=== PATIENT | female | born 1995 | race Caucasian/White ===

== ENCOUNTER 2019-11-28 14:37 | Inpatient (IN) | payer MEDICAID ==
[~2019-11-28] VITALS: Ht 177.8 cm; Wt 69.0 kg
[2019-11-28 15:26] LABS: BASOPHILS % (AUTO) 0.1 % (0.0-2.0); EOSINOPHILS % (AUTO) 1.7 % (1.0-6.0); HEMATOCRIT 39.4 % (36-46); HEMOGLOBIN 13.1 g/dL (12.0-16.0); LYMPHOCYTES # (AUTO) 1.9 K/uL (1.0-4.8); LYMPHOCYTES % (AUTO) 27.9 % (22.0-44.0); MEAN CORPUSCULAR HEMOGLOBIN 29.4 pg (26.0-34.0); MEAN CORPUSCULAR HGB CONC 33.3 G/dL (31.0-37.0); MEAN CORPUSCULAR VOLUME 88 fL (80-100); MONOCYTES # (AUTO) 0.5 K/uL (0.1-1.0); MONOCYTES % (AUTO) 7.9 % (2.0-9.0); NEUTROPHILS # (AUTO) 4.3 K/uL (1.8-7.7); NEUTROPHILS % (AUTO) 62.4 % (40.0-70.0); PLATELET COUNT (AUTO) 184 K/uL (150-450); RED BLOOD CELL COUNT(AUTO) 4.46 MIL/uL (4.00-5.20); RED CELL DISTRIBUTION WIDTH 13.9 % (11.5-14.5)
[2019-11-28 15:45] LABS: ANION GAP 11 mmol/L (8-16); CALCIUM, TOTAL 8.8 mg/dL (8.8-10.5); CARBON DIOXIDE 26 mmol/L (22-29); CHLORIDE 105 mmol/L (98-107); CREATININE 0.66 mg/dL (0.60-1.30); GLOMERULAR FILTR. RATE CALC > 60 mL/min (>60); GLUCOSE,RANDOM 73 mg/dL (70-110); POTASSIUM 3.5 mmol/L (3.5-5.1); SODIUM SERUM 142 mmol/L (136-145); UREA NITROGEN, BLOOD 15 mg/dL (7-18)
[2019-11-28 15:50] LABS: ALANINE AMINOTRANSFERASE 23 U/L (12-78); ALBUMIN 4.2 g/dL (3.4-5.0); ALKALINE PHOSPHATASE 61 U/L (46-116); ASPARTATE AMINOTRANSFERASE 21 U/L (15-37); TOTAL PROTEIN, SERUM 7.1 g/dL (6.4-8.2)
[2019-11-28] MEDS ORDERED: HALOPERIDOL LACTATE 5 MG/ML VIAL ONE (17:12)
[2019-11-28] MEDS ORDERED: LORazepam 2 MG/ML VIAL ONE (17:12)
[2019-11-28] MEDS ORDERED: LORazepam 2 MG/ML VIAL IM ONE (17:15)
[2019-11-28] MEDS ORDERED: HALOPERIDOL LACTATE 5 MG/ML VIAL IM ONE (17:15)
[2019-11-28] MEDS ORDERED: HALOPERIDOL 5 MG TABLET PO PRN (19:15)
[2019-11-28] MEDS ORDERED: ZOLPIDEM TARTRATE 10 MG TABLET PO PRN (19:15)
[2019-11-28 22:08] VITALS: BP 96/56
[2019-11-29 09:28] VITALS: BP_SYST 18
[2019-11-29] MEDS: RisperiDONE 1 MG TABLET PO SCH ×2 (10:39→16:23)
[2019-11-29] MEDS: LORazepam 2 MG TABLET PO PRN (16:23)
[2019-11-29 16:50] VITALS: BP 115/68
[2019-11-30 05:52] VITALS: BP 116/80
[2019-11-30] MEDS: RisperiDONE 1 MG TABLET PO SCH ×2 (09:00→16:13)
[2019-11-30 13:19] VITALS: BP 131/75
[2019-11-30] MEDS ORDERED: MAGNESIUM HYDROXIDE SUSPENSION 30 ML UDCUP PO PRN (14:15)
[2019-11-30] MEDS ORDERED: MAG HYDROX/AL HYDROX/SIMETH ES 30 ML SUSPENSION UDCUP PO PRN (14:15)
[2019-11-30] MEDS ORDERED: NICOTINE 14 MG/24 HOUR PATCH TD PRN (14:15)
[2019-11-30] MEDS ORDERED: DOCUSATE SODIUM 100 MG CAPSULE PO PRN (14:15)
[2019-11-30] MEDS ORDERED: IBUPROFEN 400 MG TABLET PO PRN (14:15)
[2019-11-30] MEDS ORDERED: GuaiFENesin/D-METHORPHAN [SUGAR-FREE] 200-20MG/10 ML SYRUP UDCUP PO PRN (14:15)
[2019-11-30] MEDS ORDERED: ACETAMINOPHEN 325 MG TABLET PO PRN (14:15)
[2019-11-30] MEDS ORDERED: ONDANSETRON HCL 4 MG TABLET PO PRN (14:15)
[2019-11-30] MEDS ORDERED: ALBUTEROL SULFATE HFA 90 MCG/PUFF 8 GM INHALER IH PRN (14:15)
[2019-11-30] MEDS ORDERED: PETROLATUM,WHITE 28 GM JELLY TP PRN (14:15)
[2019-11-30] MEDS ORDERED: LOPERAMIDE HCL 2 MG CAPSULE PO PRN (14:15)
[2019-11-30] MEDS ORDERED: CloNIDine HCL 0.1 MG TABLET PO PRN (14:15)
[2019-11-30 19:08] VITALS: BP 126/69
[2019-12-01] MEDS: RisperiDONE 1 MG TABLET PO SCH ×2 (09:00→16:51)
[2019-12-01 10:53] VITALS: BP 107/61
[2019-12-01 16:57] VITALS: BP 106/83
[2019-12-01] MEDS: LORazepam 2 MG TABLET PO PRN (19:15)
[2019-12-02] MEDS ORDERED: RINGERS SOLUTION,LACTATED 1,000 ML IV ONE ×2 (05:06→06:30)
[2019-12-02 05:15] VITALS: BP 119/60
[2019-12-02] MEDS ORDERED: SODIUM CHLORIDE 0.9% 0 ML ONE (06:47)
[2019-12-02] MEDS ORDERED: BACITRACIN 50,000 UNITS/VIAL ONE (06:47)
[2019-12-02] MEDS ORDERED: LIDOCAINE/PF 1% 30 ML VIAL ONE (06:48)
[2019-12-02] MEDS ORDERED: BUPIVACAINE HCL/PF 0.5% 30 ML VIAL ONE (06:48)
[2019-12-02] MEDS ORDERED: BACITRACIN 28.4 GM OINTMENT TP ONE (08:14)
[2019-12-02] MEDS ORDERED: ACETAMINOPHEN/CODEINE 300-30 MG TABLET PO PRN (08:30)
[2019-12-02] MEDS: RisperiDONE 1 MG TABLET PO SCH ×2 (09:37→16:20)
[2019-12-02 10:14] VITALS: BP 102/69
[2019-12-02] MEDS ORDERED: MIDAZOLAM HCL 2 MG/2 ML VIAL IVP ONE (12:00)
[2019-12-02] MEDS ORDERED: FentaNYL CITRATE-PF 100 MCG/2 ML VIAL IVP ONE (12:00)
[2019-12-02] MEDS ORDERED: 0.9% SODIUM CHLORIDE 10 ML VIAL IVP ONE (12:00)
[2019-12-02] MEDS ORDERED: PROPOFOL 1% 20 ML VIAL IVP ONE (12:00)
[2019-12-02 17:28] VITALS: BP 148/58
[2019-12-02] MEDS: CEPHALEXIN MONOHYDRATE 500 MG CAPSULE PO SCH (23:48)
[2019-12-03 08:49] VITALS: BP 125/81
[2019-12-03] MEDS: CEPHALEXIN MONOHYDRATE 500 MG CAPSULE PO SCH ×2 (09:03→16:49)
[2019-12-03] MEDS: RisperiDONE 1 MG TABLET PO SCH ×2 (09:03→16:48)
[2019-12-03] MEDS: SULFAMETHOX/TRIMETH DS 800-160 MG/TABLET PO SCH (09:03)
[2019-12-03 11:28] VITALS: BP 122/76
[2019-12-03 17:13] VITALS: BP 110/74
[2019-12-04 03:24] VITALS: BP 107/60
[2019-12-04 08:46] VITALS: BP 121/71
[2019-12-04] MEDS: CEPHALEXIN MONOHYDRATE 500 MG CAPSULE PO SCH ×3 (09:12→16:26)
[2019-12-04] MEDS: RisperiDONE 1 MG TABLET PO SCH ×2 (09:12→16:26)
[2019-12-04] MEDS: SULFAMETHOX/TRIMETH DS 800-160 MG/TABLET PO SCH (09:12)
[2019-12-04 18:51] VITALS: BP 101/60
[2019-12-05] MEDS: CEPHALEXIN MONOHYDRATE 500 MG CAPSULE PO SCH ×4 (00:08→23:48)
[2019-12-05 00:19] VITALS: BP 98/62
[2019-12-05 09:00] VITALS: BP 128/66
[2019-12-05] MEDS: SULFAMETHOX/TRIMETH DS 800-160 MG/TABLET PO SCH (09:34)
[2019-12-05] MEDS: RisperiDONE 1 MG TABLET PO SCH ×2 (09:34→16:05)
[2019-12-05 17:07] VITALS: BP 102/62
[2019-12-06 01:23] VITALS: BP 97/58
[2019-12-06] MEDS: CEPHALEXIN MONOHYDRATE 500 MG CAPSULE PO SCH ×3 (08:29→23:55)
[2019-12-06] MEDS: SULFAMETHOX/TRIMETH DS 800-160 MG/TABLET PO SCH (08:29)
[2019-12-06] MEDS: RisperiDONE 1 MG TABLET PO SCH ×2 (08:29→16:00)
[2019-12-06 09:38] VITALS: BP 113/58
[2019-12-06 17:02] VITALS: BP 102/58
[2019-12-07] MEDS: CEPHALEXIN MONOHYDRATE 500 MG CAPSULE PO SCH ×3 (09:14→23:52)
[2019-12-07] MEDS: RisperiDONE 1 MG TABLET PO SCH ×2 (09:14→16:06)
[2019-12-07] MEDS: SULFAMETHOX/TRIMETH DS 800-160 MG/TABLET PO SCH (09:14)
[2019-12-07 09:19] VITALS: BP 100/70
[2019-12-07 16:55] VITALS: BP 106/57
[2019-12-08] MEDS: RisperiDONE 1 MG TABLET PO SCH ×2 (08:16→16:08)
[2019-12-08] MEDS: CEPHALEXIN MONOHYDRATE 500 MG CAPSULE PO SCH ×2 (08:16→16:08)
[2019-12-08] MEDS: SULFAMETHOX/TRIMETH DS 800-160 MG/TABLET PO SCH (08:16)
[2019-12-08 09:08] VITALS: BP 111/68
[2019-12-08 17:52] VITALS: BP 114/58
[2019-12-09 09:06] VITALS: BP 111/57
[2019-12-09] MEDS: RisperiDONE 1 MG TABLET PO SCH ×2 (09:10→16:15)
[2019-12-09] MEDS ORDERED: TUBERCULIN, PURIFIED PROTEIN DERIVATIVE 5 TU/0.1 ML SYRINGE ID ONE (15:15)
[2019-12-09 17:01] VITALS: BP 101/56
[2019-12-10 08:22] VITALS: BP 105/58
[2019-12-10] MEDS: RisperiDONE 1 MG TABLET PO SCH ×2 (09:25→15:51)
[2019-12-10] MEDS ORDERED: TUBERCULIN, PURIFIED PROTEIN DERIVATIVE 5 TU/0.1 ML SYRINGE ID ONE (13:00)
[2019-12-10 16:18] VITALS: BP 98/56
[2019-12-11] MEDS: RisperiDONE 1 MG TABLET PO SCH ×2 (08:35→16:24)
[2019-12-11 12:25] VITALS: BP 119/66
[2019-12-11 16:28] VITALS: BP 98/60
[2019-12-12 02:38] VITALS: BP 109/61
[2019-12-12] MEDS: RisperiDONE 1 MG TABLET PO SCH ×2 (08:59→16:06)
[2019-12-12 10:39] VITALS: BP 108/56
[2019-12-12 17:26] VITALS: BP 100/53
[2019-12-13] MEDS: RisperiDONE 1 MG TABLET PO SCH ×2 (09:25→16:01)
[2019-12-13 09:36] VITALS: BP 101/57
[2019-12-13 16:00] VITALS: BP 92/50
[2019-12-14 03:52] VITALS: BP 102/62
[2019-12-14 09:23] VITALS: BP 100/60
[2019-12-14] MEDS: RisperiDONE 1 MG TABLET PO SCH ×2 (09:25→16:11)
[2019-12-14] MEDS: LORazepam 2 MG TABLET PO PRN (16:09)
[2019-12-14 18:57] VITALS: BP 108/64
[2019-12-15 01:46] VITALS: BP 104/64
[2019-12-15] MEDS: RisperiDONE 1 MG TABLET PO SCH (08:43)
[2019-12-15] MEDS ORDERED: RISP1 PO (09:10)
[2019-12-15 09:36] VITALS: BP 110/55
== END 2019-12-15 10:25 | disposition home or self-care (01) | DRG 885 ==
LOC: EMS 14:40 → 3EI 19:30
PROVIDERS: ADMIT Psychiatry & Neurology Child & Adolescent Psychiatry; ATTEND Psychiatry & Neurology Child & Adolescent Psychiatry
PROC: 0JCQ0ZZ Extirpation of Matter from Right Foot Subcutaneous Tissue and Fascia, Open Approach (ICD-10-PCS; principal; 2019-12-02 07:30)
DX: F20.0 Paranoid schizophrenia (principal); F10.10 Alcohol abuse, uncomplicated; F17.200 Nicotine dependence, unspecified, uncomplicated; I10 Essential (primary) hypertension; F15.90 Other stimulant use, unspecified, uncomplicated; S90.851A Superficial foreign body, right foot, initial encounter; X58.XXXA Exposure to other specified factors, initial encounter; Y93.89 Activity, other specified; Y92.89 Other specified places as the place of occurrence of the external cause; Y99.8 Other external cause status; Z59.0 Homelessness; F41.9 Anxiety disorder, unspecified; I95.9 Hypotension, unspecified; F19.10 Other psychoactive substance abuse, uncomplicated
CPT/HCPCS: 88302; 97116; 97161; 97530; G0480; J0690; J1630; J2060; J2250; J2704; J3010; J3490; J7120

== ENCOUNTER 2019-12-19 11:34 | Emergency (ER) | payer MEDICAID ==
[~2019-12-19] VITALS: Ht 177.8 cm; Wt 59.1 kg
[~2019-12-19 11:34] MED LIST: RISP1 PO
[2019-12-19] MEDS ORDERED: HALOPERIDOL 5 MG TABLET PO ONE (13:15)
[2019-12-19 13:16] LABS: BASOPHILS % (AUTO) 0.3 % (0.0-2.0); EOSINOPHILS % (AUTO) 2.6 % (1.0-6.0); HEMOGLOBIN 13.6 g/dL (12.0-16.0); LYMPHOCYTES # (AUTO) 1.9 K/uL (1.0-4.8); LYMPHOCYTES % (AUTO) 32.6 % (22.0-44.0); MEAN CORPUSCULAR HEMOGLOBIN 29.4 pg (26.0-34.0); MEAN CORPUSCULAR HGB CONC 33.1 G/dL (31.0-37.0); MEAN CORPUSCULAR VOLUME 89 fL (80-100); MONOCYTES # (AUTO) 0.5 K/uL (0.1-1.0); MONOCYTES % (AUTO) 8.1 % (2.0-9.0); NEUTROPHILS # (AUTO) 3.3 K/uL (1.8-7.7); NEUTROPHILS % (AUTO) 56.4 % (40.0-70.0); PLATELET COUNT (AUTO) 178 K/uL (150-450); RED BLOOD CELL COUNT(AUTO) 4.62 MIL/uL (4.00-5.20); RED CELL DISTRIBUTION WIDTH 13.7 % (11.5-14.5)
[2019-12-19 13:25] LABS: ANION GAP 9 mmol/L (8-16); CALCIUM, TOTAL 9.5 mg/dL (8.8-10.5); CARBON DIOXIDE 27 mmol/L (22-29); CHLORIDE 105 mmol/L (98-107); CREATININE 0.69 mg/dL (0.60-1.30); GLOMERULAR FILTR. RATE CALC > 60 mL/min (>60); GLUCOSE,RANDOM 77 mg/dL (70-110); POTASSIUM 3.8 mmol/L (3.5-5.1); SODIUM SERUM 141 mmol/L (136-145); UREA NITROGEN, BLOOD 15 mg/dL (7-18)
[2019-12-19 13:37] LABS: ALANINE AMINOTRANSFERASE 25 U/L (12-78); ALKALINE PHOSPHATASE 60 U/L (46-116); ASPARTATE AMINOTRANSFERASE 19 U/L (15-37); BILIRUBIN,TOTAL 0.6 mg/dL (0.1-1.0); HCG,QUANTITATIVE < 1 mIU/mL (0-6); TOTAL PROTEIN, SERUM 7.3 g/dL (6.4-8.2)
[2019-12-19 15:00] VITALS: BP 120/61
== END 2019-12-19 15:19 | disposition home or self-care (01) ==
LOC: EMS 11:34
DX: F20.9 Schizophrenia, unspecified (principal); F15.10 Other stimulant abuse, uncomplicated; F41.9 Anxiety disorder, unspecified; I10 Essential (primary) hypertension; F17.210 Nicotine dependence, cigarettes, uncomplicated; Z91.018 Allergy to other foods
CPT/HCPCS: 36415; 80053; 84702; 85025; 99284; 99406; G0480

== ENCOUNTER 2019-12-21 08:06 | Emergency (ER) | payer MEDICAID ==
[~2019-12-21] VITALS: Ht 175.3 cm; Wt 81.4 kg
[2019-12-21 08:26] LABS: AMPHET/METH SCREEN,URINE NEGATIVE (NEGATIVE); BARBITURATE SCREEN, URINE NEGATIVE (NEGATIVE); BENZODIAZEPINES SCREEN,URINE NEGATIVE (NEGATIVE); CANNABINOID SCREEN,URINE NEGATIVE (NEGATIVE); COCAINE SCREEN,URINE NEGATIVE (NEGATIVE); METHADONE SCREEN, URINE NEGATIVE (NEGATIVE); OPIATE SCREEN,URINE NEGATIVE (NEGATIVE)
[2019-12-21 08:27] LABS: PHENCYCLIDINE SCREEN,URINE NEGATIVE (NEGATIVE)
[2019-12-21 08:28] LABS: APPEARANCE,URINE CLEAR (CLEAR); BILIRUBIN,URINE NEGATIVE (NEGATIVE); GLUCOSE, URINE (UA) NEGATIVE (NEGATIVE); KETONES,URINE NEGATIVE (NEGATIVE); LEUKOCYTE ESTERASE ,URINE SMALL (NEGATIVE); NITRATE,URINE NEGATIVE (NEGATIVE); OCCULT BLOOD,URINE MODERATE (NEGATIVE); PH,URINE 5.5 (5.0-8.0); PROTEIN,URINE NEGATIVE (NEGATIVE); UROBILINOGEN,URINE 0.2 mg/dL (<=1.0)
[2019-12-21 08:31] LABS: BACTERIA,URINE None Seen /HPF (None Seen); WBC,URINE None Seen /HPF (0-5)
[2019-12-21] MEDS ORDERED: DiphenhydrAMINE HCL 50 MG/ML VIAL ONE (08:40)
[2019-12-21] MEDS ORDERED: HALOPERIDOL LACTATE 5 MG/ML VIAL ONE (08:40)
[2019-12-21] MEDS ORDERED: LORazepam 2 MG/ML VIAL ONE (08:40)
[2019-12-21] MEDS ORDERED: LORazepam 2 MG/ML VIAL IM ONE (08:45)
[2019-12-21] MEDS ORDERED: HALOPERIDOL LACTATE 5 MG/ML VIAL IM ONE (08:45)
[2019-12-21] MEDS ORDERED: DiphenhydrAMINE HCL 50 MG/ML VIAL IM ONE (08:45)
[2019-12-21 09:38] LABS: BASOPHILS % (AUTO) 0.2 % (0.0-2.0); EOSINOPHILS % (AUTO) 3.5 % (1.0-6.0); HEMATOCRIT 38.5 % (36-46); HEMOGLOBIN 12.9 g/dL (12.0-16.0); LYMPHOCYTES # (AUTO) 2.1 K/uL (1.0-4.8); LYMPHOCYTES % (AUTO) 35.6 % (22.0-44.0); MEAN CORPUSCULAR HEMOGLOBIN 29.9 pg (26.0-34.0); MEAN CORPUSCULAR HGB CONC 33.6 G/dL (31.0-37.0); MEAN CORPUSCULAR VOLUME 89 fL (80-100); MONOCYTES # (AUTO) 0.4 K/uL (0.1-1.0); NEUTROPHILS # (AUTO) 3.2 K/uL (1.8-7.7); NEUTROPHILS % (AUTO) 53.7 % (40.0-70.0); PLATELET COUNT (AUTO) 177 K/uL (150-450); RED BLOOD CELL COUNT(AUTO) 4.33 MIL/uL (4.00-5.20); RED CELL DISTRIBUTION WIDTH 13.8 % (11.5-14.5)
[2019-12-21 09:46] LABS: ANION GAP 7 mmol/L (8-16); CARBON DIOXIDE 26 mmol/L (22-29); CHLORIDE 103 mmol/L (98-107); CREATININE 0.65 mg/dL (0.60-1.30); GLOMERULAR FILTR. RATE CALC > 60 mL/min (>60); GLUCOSE,RANDOM 81 mg/dL (70-110); POTASSIUM 3.8 mmol/L (3.5-5.1); SODIUM SERUM 136 mmol/L (136-145); UREA NITROGEN, BLOOD 16 mg/dL (7-18)
[2019-12-21 09:53] LABS: ALANINE AMINOTRANSFERASE 24 U/L (12-78); ALBUMIN 4.1 g/dL (3.4-5.0); ALKALINE PHOSPHATASE 66 U/L (46-116); ASPARTATE AMINOTRANSFERASE 20 U/L (15-37); BILIRUBIN,TOTAL 0.3 mg/dL (0.1-1.0); TOTAL PROTEIN, SERUM 7.5 g/dL (6.4-8.2)
[2019-12-21 18:51] VITALS: BP 124/78
== END 2019-12-21 18:53 | disposition home or self-care (01) ==
LOC: EMS 08:08
DX: F20.9 Schizophrenia, unspecified (principal); F41.9 Anxiety disorder, unspecified; I10 Essential (primary) hypertension; F17.210 Nicotine dependence, cigarettes, uncomplicated; F15.90 Other stimulant use, unspecified, uncomplicated; F11.90 Opioid use, unspecified, uncomplicated; F12.90 Cannabis use, unspecified, uncomplicated; Z79.899 Other long term (current) drug therapy; Z91.018 Allergy to other foods
CPT/HCPCS: 36415; 80053; 80307; 81001; 85025; 96372; 99284; G0480; J1200; J1630; J2060

== ENCOUNTER 2019-12-23 10:03 | Emergency (ER) | payer MEDICAID ==
[~2019-12-23] VITALS: Ht 177.8 cm; Wt 68.2 kg
[2019-12-23] MEDS ORDERED: HALOPERIDOL LACTATE 5 MG/ML VIAL IM ONE (10:30)
[2019-12-23 10:52] VITALS: BP 146/81
== END 2019-12-23 10:53 | disposition home or self-care (01) ==
LOC: EMS 10:05
DX: R44.0 Auditory hallucinations (principal); F41.9 Anxiety disorder, unspecified; I10 Essential (primary) hypertension; Z91.018 Allergy to other foods
CPT/HCPCS: 96372; 99284; J1630

== ENCOUNTER 2019-12-31 19:32 | Inpatient (IN) | payer MEDICAID ==
[~2019-12-31] VITALS: Ht 177.8 cm; Wt 79.3 kg
[2019-12-31 20:19] LABS: BASOPHILS % (AUTO) 0.2 % (0.0-2.0); EOSINOPHILS % (AUTO) 5.1 % (1.0-6.0); HEMATOCRIT 37.1 % (36-46); HEMOGLOBIN 12.7 g/dL (12.0-16.0); LYMPHOCYTES % (AUTO) 38.2 % (22.0-44.0); MEAN CORPUSCULAR HEMOGLOBIN 30.4 pg (26.0-34.0); MEAN CORPUSCULAR HGB CONC 34.1 G/dL (31.0-37.0); MEAN CORPUSCULAR VOLUME 89 fL (80-100); MONOCYTES # (AUTO) 0.4 K/uL (0.1-1.0); MONOCYTES % (AUTO) 7.7 % (2.0-9.0); NEUTROPHILS # (AUTO) 2.5 K/uL (1.8-7.7); NEUTROPHILS % (AUTO) 48.8 % (40.0-70.0); PLATELET COUNT (AUTO) 190 K/uL (150-450); RED BLOOD CELL COUNT(AUTO) 4.18 MIL/uL (4.00-5.20); RED CELL DISTRIBUTION WIDTH 14.4 % (11.5-14.5)
[2019-12-31 20:30] LABS: ANION GAP 3 mmol/L (8-16); CALCIUM, TOTAL 8.9 mg/dL (8.8-10.5); CARBON DIOXIDE 29 mmol/L (22-29); CHLORIDE 109 mmol/L (98-107); CREATININE 0.57 mg/dL (0.60-1.30); GLOMERULAR FILTR. RATE CALC > 60 mL/min (>60); GLUCOSE,RANDOM 85 mg/dL (70-110); POTASSIUM 3.9 mmol/L (3.5-5.1); SODIUM SERUM 141 mmol/L (136-145); UREA NITROGEN, BLOOD 13 mg/dL (7-18)
[2019-12-31 20:43] LABS: ALANINE AMINOTRANSFERASE 27 U/L (12-78); ALBUMIN 3.7 g/dL (3.4-5.0); ALKALINE PHOSPHATASE 54 U/L (46-116); ASPARTATE AMINOTRANSFERASE 21 U/L (15-37); BILIRUBIN,TOTAL 0.2 mg/dL (0.1-1.0); HCG,QUANTITATIVE < 1 mIU/mL (0-6)
[2019-12-31 20:57] LABS: AMPHET/METH SCREEN,URINE NEGATIVE (NEGATIVE); BARBITURATE SCREEN, URINE NEGATIVE (NEGATIVE); BENZODIAZEPINES SCREEN,URINE POSITIVE (NEGATIVE); CANNABINOID SCREEN,URINE NEGATIVE (NEGATIVE); COCAINE SCREEN,URINE NEGATIVE (NEGATIVE); METHADONE SCREEN, URINE NEGATIVE (NEGATIVE); OPIATE SCREEN,URINE NEGATIVE (NEGATIVE); PHENCYCLIDINE SCREEN,URINE NEGATIVE (NEGATIVE)
[2020-01-01] MEDS: ZOLPIDEM TARTRATE 10 MG TABLET PO PRN (01:33)
[2020-01-01 01:39] LABS: APPEARANCE,URINE TURBID (CLEAR); BILIRUBIN,URINE NEGATIVE (NEGATIVE); GLUCOSE, URINE (UA) NEGATIVE (NEGATIVE); KETONES,URINE NEGATIVE (NEGATIVE); LEUKOCYTE ESTERASE ,URINE SMALL (NEGATIVE); NITRATE,URINE NEGATIVE (NEGATIVE); OCCULT BLOOD,URINE NEGATIVE (NEGATIVE); PH,URINE 7.5 (5.0-8.0); PROTEIN,URINE NEGATIVE (NEGATIVE); UROBILINOGEN,URINE 0.2 mg/dL (<=1.0)
[2020-01-01 01:41] VITALS: BP 112/93
[2020-01-01 01:53] LABS: AMORPHOUS SEDIMENT,UR Few /LPF (None Seen); BACTERIA,URINE Few /HPF (None Seen); RBC,URINE 0-2 /HPF (0-2); SQUAMOUS EPITHELIAL CELL,UR Few /LPF (None Seen)
[2020-01-01 01:54] VITALS: BP 112/93
[2020-01-01 08:04] LABS: CHOL/HDL RATIO 2.5 (3.9-5.7)
[2020-01-01 08:26] VITALS: BP 138/92
[2020-01-01] MEDS: HALOPERIDOL 5 MG TABLET PO PRN (10:55)
[2020-01-01] MEDS: LORazepam 2 MG TABLET PO PRN (10:55)
[2020-01-01] MEDS ORDERED: RISP2 PO (12:42)
[2020-01-01] MEDS: RisperiDONE 2 MG TABLET PO SCH (16:14)
[2020-01-01 16:27] VITALS: BP 107/72
[2020-01-02] MEDS: RisperiDONE 2 MG TABLET PO SCH ×2 (08:23→16:18)
[2020-01-02 08:30] VITALS: BP 124/76
[2020-01-02 17:15] VITALS: BP 139/84
[2020-01-02] MEDS: HALOPERIDOL 5 MG TABLET PO PRN (17:50)
[2020-01-02] MEDS: LORazepam 2 MG TABLET PO PRN (17:50)
[2020-01-03 06:38] VITALS: BP 103/64
[2020-01-03] MEDS: RisperiDONE 2 MG TABLET PO SCH ×2 (08:52→17:09)
[2020-01-03 08:56] VITALS: BP 140/75
[2020-01-03] MEDS: LORazepam 2 MG TABLET PO PRN (15:04)
[2020-01-03] MEDS: HALOPERIDOL 5 MG TABLET PO PRN (15:04)
[2020-01-03 21:29] VITALS: BP 137/81
[2020-01-04 04:11] VITALS: BP 116/76
[2020-01-04] MEDS: RisperiDONE 2 MG TABLET PO SCH ×2 (08:14→16:52)
[2020-01-04] MEDS: LORazepam 2 MG TABLET PO PRN ×2 (08:59→17:48)
[2020-01-04 09:40] VITALS: BP 121/69
[2020-01-04] MEDS: ACETAMINOPHEN 325 MG TABLET PO PRN (13:27)
[2020-01-04 17:09] VITALS: BP 114/74
[2020-01-05] MEDS: RisperiDONE 2 MG TABLET PO SCH ×2 (08:16→16:22)
[2020-01-05 13:39] VITALS: BP 112/86
[2020-01-05] MEDS: LORazepam 2 MG TABLET PO PRN (16:59)
[2020-01-05 17:53] VITALS: BP 107/68
[2020-01-05] MEDS: BENZOCAINE 10% 7 GM GEL TP PRN (18:59)
[2020-01-06] MEDS: RisperiDONE 2 MG TABLET PO SCH ×2 (09:42→17:11)
[2020-01-06 12:13] VITALS: BP 119/67
[2020-01-06] MEDS: HALOPERIDOL 5 MG TABLET PO PRN (17:14)
[2020-01-06] MEDS: LORazepam 2 MG TABLET PO PRN (17:14)
[2020-01-06 19:14] VITALS: BP 114/68
[2020-01-07 01:40] VITALS: BP 111/60
[2020-01-07] MEDS: RisperiDONE 2 MG TABLET PO SCH ×2 (08:24→16:43)
[2020-01-07 08:30] VITALS: BP 118/66
[2020-01-07 17:00] VITALS: BP 130/74
[2020-01-08 08:37] VITALS: BP 117/80
[2020-01-08] MEDS: RisperiDONE 2 MG TABLET PO SCH ×2 (08:50→16:00)
[2020-01-08 17:00] VITALS: BP 129/68
[2020-01-08] MEDS: HALOPERIDOL 5 MG TABLET PO PRN (22:46)
[2020-01-08] MEDS: LORazepam 2 MG TABLET PO PRN (22:46)
[2020-01-08] MEDS: ACETAMINOPHEN 325 MG TABLET PO PRN (23:39)
[2020-01-09] MEDS: RisperiDONE 2 MG TABLET PO SCH ×2 (10:09→17:06)
[2020-01-09 12:36] VITALS: BP 150/103
[2020-01-09] MEDS: LORazepam 2 MG TABLET PO PRN (12:45)
[2020-01-09] MEDS: HALOPERIDOL 5 MG TABLET PO PRN (12:45)
[2020-01-09 17:45] VITALS: BP 112/69
[2020-01-10] MEDS: RisperiDONE 2 MG TABLET PO SCH ×2 (08:22→16:39)
[2020-01-10 09:54] VITALS: BP 114/69
[2020-01-10 17:47] VITALS: BP 120/65
[2020-01-10] MEDS: ZOLPIDEM TARTRATE 10 MG TABLET PO PRN (20:22)
[2020-01-11] MEDS: RisperiDONE 2 MG TABLET PO SCH ×2 (08:44→16:32)
[2020-01-11 09:38] VITALS: BP 108/62
[2020-01-11 11:15] VITALS: BP 104/64
[2020-01-11] MEDS: HALOPERIDOL 5 MG TABLET PO PRN (11:15)
[2020-01-11] MEDS: LORazepam 2 MG TABLET PO PRN (11:15)
[2020-01-11 16:30] VITALS: BP 110/70
[2020-01-12] MEDS: RisperiDONE 2 MG TABLET PO SCH ×2 (08:17→15:53)
[2020-01-12 08:36] VITALS: BP 115/72
[2020-01-12] MEDS: HALOPERIDOL 5 MG TABLET PO PRN (15:52)
[2020-01-12 16:00] VITALS: BP_SYST 108; BP_SYST 135; BP_DIAS 70; BP_DIAS 72
[2020-01-12] MEDS: LORazepam 2 MG TABLET PO PRN (17:03)
[2020-01-13] MEDS: RisperiDONE 2 MG TABLET PO SCH ×2 (08:08→16:57)
[2020-01-13 09:18] VITALS: BP 129/69
[2020-01-13] MEDS: HALOPERIDOL 5 MG TABLET PO PRN (13:32)
[2020-01-13] MEDS: LORazepam 2 MG TABLET PO PRN (13:32)
[2020-01-13 16:55] VITALS: BP 120/76
[2020-01-14] MEDS: RisperiDONE 2 MG TABLET PO SCH ×2 (09:23→16:22)
[2020-01-14 10:41] VITALS: BP 139/75
[2020-01-14 12:45] VITALS: BP 130/75
[2020-01-14] MEDS: ACETAMINOPHEN 325 MG TABLET PO PRN (12:49)
[2020-01-14] MEDS: LORazepam 2 MG TABLET PO PRN (14:26)
[2020-01-14 20:33] VITALS: BP 122/72
[2020-01-15 04:14] VITALS: BP 106/65
[2020-01-15 08:22] VITALS: BP 105/77
[2020-01-15] MEDS: RisperiDONE 2 MG TABLET PO SCH ×2 (09:19→16:28)
[2020-01-15 21:17] VITALS: BP 104/62
[2020-01-16 01:01] VITALS: BP 111/78
[2020-01-16 08:00] VITALS: BP 106/60
[2020-01-16 08:40] VITALS: BP 106/60
[2020-01-16] MEDS: RisperiDONE 2 MG TABLET PO SCH ×2 (08:58→16:36)
[2020-01-16 18:15] VITALS: BP 121/66
[2020-01-17] MEDS: RisperiDONE 2 MG TABLET PO SCH ×2 (08:31→16:47)
[2020-01-17 10:47] VITALS: BP 107/69
[2020-01-17] MEDS: LORazepam 2 MG TABLET PO PRN (16:48)
[2020-01-17] MEDS: HALOPERIDOL 5 MG TABLET PO PRN (16:48)
[2020-01-17 19:41] VITALS: BP 115/74
[2020-01-18 01:00] VITALS: BP 132/60
[2020-01-18] MEDS: ACETAMINOPHEN 325 MG TABLET PO PRN (01:04)
[2020-01-18] MEDS: RisperiDONE 2 MG TABLET PO SCH ×2 (08:32→16:56)
[2020-01-18 10:27] VITALS: BP 98/68
[2020-01-18] MEDS ORDERED: TUBERCULIN, PURIFIED PROTEIN DERIVATIVE 5 TU/0.1 ML SYRINGE ID ONE (12:45)
[2020-01-18] MEDS: HALOPERIDOL 5 MG TABLET PO PRN (15:43)
[2020-01-18] MEDS: LORazepam 2 MG TABLET PO PRN (15:43)
[2020-01-18 16:30] VITALS: BP 110/74
[2020-01-19 05:43] VITALS: BP 141/64
[2020-01-19] MEDS: RisperiDONE 2 MG TABLET PO SCH ×2 (09:03→16:00)
[2020-01-19 10:36] VITALS: BP 137/66
[2020-01-19 17:00] VITALS: BP 118/73
[2020-01-19] MEDS: LORazepam 2 MG TABLET PO PRN (17:59)
[2020-01-19] MEDS: HALOPERIDOL 5 MG TABLET PO PRN (17:59)
[2020-01-20] MEDS: RisperiDONE 2 MG TABLET PO SCH ×2 (08:22→16:38)
[2020-01-20 08:55] VITALS: BP 111/68
[2020-01-20] MEDS ORDERED: TUBERCULIN, PURIFIED PROTEIN DERIVATIVE 5 TU/0.1 ML SYRINGE ID ONE (15:45)
[2020-01-20 16:30] VITALS: BP 120/72
[2020-01-20] MEDS: HALOPERIDOL 5 MG TABLET PO PRN (16:38)
[2020-01-20] MEDS: LORazepam 2 MG TABLET PO PRN (16:38)
[2020-01-21 03:56] VITALS: BP 105/65
[2020-01-21] MEDS: RisperiDONE 2 MG TABLET PO SCH ×2 (08:05→16:15)
[2020-01-21 09:30] VITALS: BP 114/60
[2020-01-21] MEDS: LORazepam 2 MG TABLET PO PRN (14:59)
[2020-01-21 17:04] VITALS: BP 105/69
[2020-01-21] MEDS: DIVALPROEX SODIUM 500 MG ER TABLET PO SCH (20:31)
[2020-01-22 01:20] VITALS: BP 99/64
[2020-01-22] MEDS: RisperiDONE 3 MG TABLET PO SCH ×2 (09:15→16:28)
[2020-01-22 09:34] VITALS: BP 112/65
[2020-01-22] MEDS: BENZTROPINE MESYLATE 1 MG TABLET PO SCH (16:29)
[2020-01-22 16:56] VITALS: BP 122/64
[2020-01-22] MEDS: DIVALPROEX SODIUM 500 MG ER TABLET PO SCH (20:18)
[2020-01-22] MEDS: ZOLPIDEM TARTRATE 10 MG TABLET PO PRN (21:53)
[2020-01-23 03:40] VITALS: BP 107/50
[2020-01-23] MEDS: RisperiDONE 3 MG TABLET PO SCH ×2 (08:19→16:05)
[2020-01-23] MEDS: BENZTROPINE MESYLATE 1 MG TABLET PO SCH ×2 (08:19→16:05)
[2020-01-23 09:43] VITALS: BP 144/66
[2020-01-23 16:53] VITALS: BP 95/59
[2020-01-23] MEDS: DIVALPROEX SODIUM 500 MG ER TABLET PO SCH (20:11)
[2020-01-24 04:34] VITALS: BP 97/63
[2020-01-24] MEDS: BENZTROPINE MESYLATE 1 MG TABLET PO SCH ×2 (09:07→16:16)
[2020-01-24] MEDS: RisperiDONE 3 MG TABLET PO SCH ×2 (09:08→16:16)
[2020-01-24 10:37] VITALS: BP 108/60
[2020-01-24 16:30] VITALS: BP 100/69
[2020-01-24] MEDS: DIVALPROEX SODIUM 500 MG ER TABLET PO SCH (20:20)
[2020-01-25] MEDS: BENZTROPINE MESYLATE 1 MG TABLET PO SCH ×2 (08:04→16:10)
[2020-01-25] MEDS: RisperiDONE 3 MG TABLET PO SCH ×2 (08:04→16:10)
[2020-01-25 16:49] VITALS: BP 146/58
[2020-01-25] MEDS: DIVALPROEX SODIUM 500 MG ER TABLET PO SCH (20:41)
[2020-01-26 02:10] VITALS: BP 116/68
[2020-01-26 08:45] VITALS: BP 111/74
[2020-01-26] MEDS: BENZTROPINE MESYLATE 1 MG TABLET PO SCH ×2 (09:12→16:10)
[2020-01-26] MEDS: RisperiDONE 3 MG TABLET PO SCH ×2 (09:12→16:10)
[2020-01-26 17:00] VITALS: BP 98/69
[2020-01-26] MEDS: DIVALPROEX SODIUM 500 MG ER TABLET PO SCH (20:20)
[2020-01-27 04:30] VITALS: BP 120/68
[2020-01-27] MEDS: BENZTROPINE MESYLATE 1 MG TABLET PO SCH ×2 (08:34→16:12)
[2020-01-27] MEDS: RisperiDONE 3 MG TABLET PO SCH ×2 (08:34→16:12)
[2020-01-27 09:33] VITALS: BP 107/64
[2020-01-27 16:30] VITALS: BP 110/72
[2020-01-27] MEDS: HALOPERIDOL 5 MG TABLET PO PRN (17:23)
[2020-01-27] MEDS: LORazepam 2 MG TABLET PO PRN (17:23)
[2020-01-27] MEDS: DIVALPROEX SODIUM 500 MG ER TABLET PO SCH (20:21)
[2020-01-28 02:36] VITALS: BP 102/84
[2020-01-28] MEDS: RisperiDONE 3 MG TABLET PO SCH ×2 (08:34→16:23)
[2020-01-28] MEDS: BENZTROPINE MESYLATE 1 MG TABLET PO SCH ×2 (08:34→16:23)
[2020-01-28 12:03] VITALS: BP 107/54
[2020-01-28] MEDS: ACETAMINOPHEN 325 MG TABLET PO PRN (16:23)
[2020-01-28 17:00] VITALS: BP 122/65
[2020-01-28] MEDS: DIVALPROEX SODIUM 500 MG ER TABLET PO SCH (20:10)
[2020-01-29 09:29] VITALS: BP 126/66
[2020-01-29] MEDS: RisperiDONE 3 MG TABLET PO SCH ×2 (09:52→16:04)
[2020-01-29] MEDS: BENZTROPINE MESYLATE 1 MG TABLET PO SCH ×2 (09:52→16:04)
[2020-01-29] MEDS: BENZOCAINE 10% 7 GM GEL TP PRN (16:15)
[2020-01-29 17:00] VITALS: BP 98/50
[2020-01-29] MEDS: DIVALPROEX SODIUM 500 MG ER TABLET PO SCH (20:01)
[2020-01-30 00:54] VITALS: BP 105/71
[2020-01-30] MEDS: RisperiDONE 3 MG TABLET PO SCH ×2 (07:57→16:19)
[2020-01-30] MEDS: BENZTROPINE MESYLATE 1 MG TABLET PO SCH ×2 (07:57→16:19)
[2020-01-30 09:47] VITALS: BP 127/71
[2020-01-30 17:15] VITALS: BP 102/69
[2020-01-30] MEDS: DIVALPROEX SODIUM 500 MG ER TABLET PO SCH (20:29)
[2020-01-31 01:49] VITALS: BP 128/71
[2020-01-31] MEDS: RisperiDONE 3 MG TABLET PO SCH ×2 (08:04→16:24)
[2020-01-31] MEDS: BENZTROPINE MESYLATE 1 MG TABLET PO SCH ×2 (08:04→16:24)
[2020-01-31 10:48] VITALS: BP 108/61
[2020-01-31] MEDS: LORazepam 2 MG TABLET PO PRN (16:24)
[2020-01-31] MEDS: HALOPERIDOL 5 MG TABLET PO PRN (16:24)
[2020-01-31 16:44] VITALS: BP 116/70
[2020-01-31] MEDS: DIVALPROEX SODIUM 500 MG ER TABLET PO SCH (20:14)
[2020-02-01] MEDS: RisperiDONE 3 MG TABLET PO SCH ×2 (08:27→16:04)
[2020-02-01] MEDS: BENZTROPINE MESYLATE 1 MG TABLET PO SCH ×2 (08:27→16:04)
[2020-02-01 09:44] VITALS: BP 116/65
[2020-02-01] MEDS: ACETAMINOPHEN 325 MG TABLET PO PRN (16:47)
[2020-02-01 16:48] VITALS: BP 140/77
[2020-02-01] MEDS: DIVALPROEX SODIUM 500 MG ER TABLET PO SCH (20:06)
[2020-02-02] MEDS: BENZTROPINE MESYLATE 1 MG TABLET PO SCH ×2 (08:07→16:22)
[2020-02-02] MEDS: RisperiDONE 3 MG TABLET PO SCH ×2 (08:07→16:22)
[2020-02-02 09:18] VITALS: BP 126/78
[2020-02-02 16:45] VITALS: BP 129/84
[2020-02-02] MEDS: DIVALPROEX SODIUM 500 MG ER TABLET PO SCH (20:17)
[2020-02-03 08:00] VITALS: BP 112/74
[2020-02-03] MEDS: BENZTROPINE MESYLATE 1 MG TABLET PO SCH ×2 (08:46→16:38)
[2020-02-03] MEDS: RisperiDONE 3 MG TABLET PO SCH ×2 (08:46→16:38)
[2020-02-03 16:26] VITALS: BP 101/75
[2020-02-03] MEDS: DIVALPROEX SODIUM 500 MG ER TABLET PO SCH (20:46)
[2020-02-04] MEDS: BENZTROPINE MESYLATE 1 MG TABLET PO SCH ×2 (08:47→17:00)
[2020-02-04] MEDS: RisperiDONE 3 MG TABLET PO SCH ×2 (08:47→17:00)
[2020-02-04 10:48] VITALS: BP 114/74
[2020-02-04] MEDS: DIVALPROEX SODIUM 500 MG ER TABLET PO SCH (20:50)
[2020-02-04 21:06] VITALS: BP 108/67
[2020-02-05] MEDS: RisperiDONE 3 MG TABLET PO SCH ×2 (08:51→16:04)
[2020-02-05] MEDS: BENZTROPINE MESYLATE 1 MG TABLET PO SCH ×2 (08:51→16:04)
[2020-02-05 11:41] VITALS: BP 88/34
[2020-02-05] MEDS: HALOPERIDOL 5 MG TABLET PO PRN (13:50)
[2020-02-05] MEDS: LORazepam 2 MG TABLET PO PRN (16:04)
[2020-02-05 16:40] VITALS: BP 123/69
[2020-02-05] MEDS: DIVALPROEX SODIUM 500 MG ER TABLET PO SCH (20:54)
[2020-02-06 00:25] VITALS: BP 107/67
[2020-02-06] MEDS: RisperiDONE 3 MG TABLET PO SCH ×2 (08:09→16:00)
[2020-02-06] MEDS: BENZTROPINE MESYLATE 1 MG TABLET PO SCH ×2 (08:09→16:00)
[2020-02-06 12:01] VITALS: BP 100/61
[2020-02-06 17:05] VITALS: BP 104/73
[2020-02-06] MEDS: DIVALPROEX SODIUM 500 MG ER TABLET PO SCH (20:15)
[2020-02-07 08:00] VITALS: BP 117/70
[2020-02-07] MEDS: BENZTROPINE MESYLATE 1 MG TABLET PO SCH ×2 (08:42→16:08)
[2020-02-07] MEDS: RisperiDONE 3 MG TABLET PO SCH ×2 (08:42→16:09)
[2020-02-07 16:00] VITALS: BP 134/73
[2020-02-07] MEDS: DIVALPROEX SODIUM 500 MG ER TABLET PO SCH (20:09)
[2020-02-07] MEDS: ZOLPIDEM TARTRATE 10 MG TABLET PO PRN (20:10)
[2020-02-08 08:00] VITALS: BP 119/69
[2020-02-08] MEDS: RisperiDONE 3 MG TABLET PO SCH ×2 (09:35→16:13)
[2020-02-08] MEDS: BENZTROPINE MESYLATE 1 MG TABLET PO SCH ×2 (09:35→16:13)
[2020-02-08 18:23] VITALS: BP 102/63
[2020-02-08] MEDS: DIVALPROEX SODIUM 500 MG ER TABLET PO SCH (20:09)
[2020-02-09 00:10] VITALS: BP 127/64
[2020-02-09] MEDS: RisperiDONE 3 MG TABLET PO SCH ×2 (08:32→16:25)
[2020-02-09] MEDS: BENZTROPINE MESYLATE 1 MG TABLET PO SCH ×2 (08:32→16:25)
[2020-02-09 09:10] VITALS: BP 120/69
[2020-02-09] MEDS: HALOPERIDOL 5 MG TABLET PO PRN (13:11)
[2020-02-09] MEDS: LORazepam 2 MG TABLET PO PRN (15:39)
[2020-02-09 16:30] VITALS: BP 123/74
[2020-02-09] MEDS: DIVALPROEX SODIUM 500 MG ER TABLET PO SCH (20:11)
[2020-02-10] MEDS: ZOLPIDEM TARTRATE 10 MG TABLET PO PRN (02:01)
[2020-02-10 02:13] VITALS: BP 123/61
[2020-02-10] MEDS: RisperiDONE 3 MG TABLET PO SCH ×2 (09:17→16:20)
[2020-02-10] MEDS: BENZTROPINE MESYLATE 1 MG TABLET PO SCH ×2 (09:17→16:20)
[2020-02-10 12:08] VITALS: BP 128/76
[2020-02-10 17:18] VITALS: BP 107/57
[2020-02-10] MEDS: DIVALPROEX SODIUM 500 MG ER TABLET PO SCH (20:43)
[2020-02-11] MEDS: ZOLPIDEM TARTRATE 10 MG TABLET PO PRN (01:41)
[2020-02-11 01:42] VITALS: BP 106/60
[2020-02-11 08:00] VITALS: BP 112/53
[2020-02-11] MEDS: RisperiDONE 3 MG TABLET PO SCH ×2 (08:12→17:02)
[2020-02-11] MEDS: BENZTROPINE MESYLATE 1 MG TABLET PO SCH ×2 (08:12→17:02)
[2020-02-11] MEDS: DIVALPROEX SODIUM 500 MG ER TABLET PO SCH (20:22)
[2020-02-11 21:56] VITALS: BP 106/65
[2020-02-12 04:34] VITALS: BP 102/65
[2020-02-12 08:00] VITALS: BP 110/64
[2020-02-12] MEDS: RisperiDONE 3 MG TABLET PO SCH ×2 (08:53→16:46)
[2020-02-12] MEDS: BENZTROPINE MESYLATE 1 MG TABLET PO SCH ×2 (08:53→16:46)
[2020-02-12 16:50] VITALS: BP 145/63
[2020-02-12] MEDS: DIVALPROEX SODIUM 500 MG ER TABLET PO SCH (21:03)
[2020-02-13] MEDS: ZOLPIDEM TARTRATE 10 MG TABLET PO PRN (02:12)
[2020-02-13 02:17] VITALS: BP 106/69
[2020-02-13] MEDS: BENZTROPINE MESYLATE 1 MG TABLET PO SCH ×2 (08:39→16:06)
[2020-02-13] MEDS: RisperiDONE 3 MG TABLET PO SCH ×2 (08:39→16:06)
[2020-02-13 09:06] VITALS: BP 131/66
[2020-02-13] MEDS: LORazepam 2 MG TABLET PO PRN (12:56)
[2020-02-13] MEDS: ACETAMINOPHEN 325 MG TABLET PO PRN (14:01)
[2020-02-13 16:53] VITALS: BP 119/78
[2020-02-13] MEDS: DIVALPROEX SODIUM 500 MG ER TABLET PO SCH (20:29)
[2020-02-14 00:34] VITALS: BP 94/64
[2020-02-14] MEDS: ZOLPIDEM TARTRATE 10 MG TABLET PO PRN (00:34)
[2020-02-14] MEDS: RisperiDONE 3 MG TABLET PO SCH ×2 (08:08→16:08)
[2020-02-14] MEDS: BENZTROPINE MESYLATE 1 MG TABLET PO SCH ×2 (08:08→16:08)
[2020-02-14 10:05] VITALS: BP 115/72
[2020-02-14] MEDS: HALOPERIDOL 5 MG TABLET PO PRN (15:42)
[2020-02-14] MEDS: LORazepam 2 MG TABLET PO PRN (15:42)
[2020-02-14 17:10] VITALS: BP 113/67
[2020-02-14] MEDS: DIVALPROEX SODIUM 500 MG ER TABLET PO SCH (21:17)
[2020-02-15 03:15] VITALS: BP 103/71
[2020-02-15 08:00] VITALS: BP 112/75
[2020-02-15] MEDS: RisperiDONE 3 MG TABLET PO SCH ×2 (09:32→16:01)
[2020-02-15] MEDS: BENZTROPINE MESYLATE 1 MG TABLET PO SCH ×2 (09:32→16:01)
[2020-02-15 19:08] VITALS: BP 111/63
[2020-02-15] MEDS: DIVALPROEX SODIUM 500 MG ER TABLET PO SCH (20:54)
[2020-02-16 01:52] VITALS: BP 106/74
[2020-02-16 08:23] VITALS: BP 103/74
[2020-02-16] MEDS: BENZTROPINE MESYLATE 1 MG TABLET PO SCH ×2 (08:59→16:20)
[2020-02-16] MEDS: RisperiDONE 3 MG TABLET PO SCH ×2 (08:59→16:20)
[2020-02-16 17:00] VITALS: BP 101/61
[2020-02-16] MEDS: DIVALPROEX SODIUM 500 MG ER TABLET PO SCH (20:09)
[2020-02-17] MEDS: ZOLPIDEM TARTRATE 10 MG TABLET PO PRN (02:15)
[2020-02-17 02:24] VITALS: BP 98/62
[2020-02-17] MEDS: RisperiDONE 3 MG TABLET PO SCH ×2 (08:25→16:12)
[2020-02-17] MEDS: BENZTROPINE MESYLATE 1 MG TABLET PO SCH ×2 (08:25→16:12)
[2020-02-17 08:58] VITALS: BP 99/65
[2020-02-17 19:45] VITALS: BP 127/74
[2020-02-17] MEDS: DIVALPROEX SODIUM 500 MG ER TABLET PO SCH (20:12)
[2020-02-18 02:10] VITALS: BP 126/76
[2020-02-18] MEDS: RisperiDONE 3 MG TABLET PO SCH ×2 (08:37→16:02)
[2020-02-18] MEDS: BENZTROPINE MESYLATE 1 MG TABLET PO SCH ×2 (08:37→16:02)
[2020-02-18 09:05] VITALS: BP 109/65
[2020-02-18] MEDS: LORazepam 2 MG TABLET PO PRN (12:14)
[2020-02-18 17:25] VITALS: BP 112/77
[2020-02-18] MEDS: DIVALPROEX SODIUM 500 MG ER TABLET PO SCH (20:24)
[2020-02-19 01:45] VITALS: BP 100/64
[2020-02-19] MEDS: BENZTROPINE MESYLATE 1 MG TABLET PO SCH ×2 (08:10→16:21)
[2020-02-19] MEDS: RisperiDONE 3 MG TABLET PO SCH ×2 (08:10→16:21)
[2020-02-19 09:10] VITALS: BP 109/59
[2020-02-19 16:26] VITALS: BP 106/61
[2020-02-19 17:30] LABS: APPEARANCE,URINE CLOUDY (CLEAR); BILIRUBIN,URINE NEGATIVE (NEGATIVE); GLUCOSE, URINE (UA) NEGATIVE (NEGATIVE); KETONES,URINE NEGATIVE (NEGATIVE); LEUKOCYTE ESTERASE ,URINE LARGE (NEGATIVE); NITRATE,URINE NEGATIVE (NEGATIVE); OCCULT BLOOD,URINE LARGE (NEGATIVE); PROTEIN,URINE POS 1+ (NEGATIVE); UROBILINOGEN,URINE 0.2 mg/dL (<=1.0)
[2020-02-19 17:34] LABS: RBC,URINE 26-50 /HPF (0-2); WBC,URINE 26-50 /HPF (0-5)
[2020-02-19 17:35] LABS: BACTERIA,URINE Few /HPF (None Seen); SQUAMOUS EPITHELIAL CELL,UR Moderate /LPF (None Seen)
[2020-02-19] MEDS: CEPHALEXIN MONOHYDRATE 250 MG CAPSULE PO SCH (19:10)
[2020-02-19] MEDS: DIVALPROEX SODIUM 500 MG ER TABLET PO SCH (20:33)
[2020-02-20 01:33] VITALS: BP 100/62
[2020-02-20 08:00] VITALS: BP 145/67
[2020-02-20] MEDS: CEPHALEXIN MONOHYDRATE 250 MG CAPSULE PO SCH ×3 (09:01→16:11)
[2020-02-20] MEDS: BENZTROPINE MESYLATE 1 MG TABLET PO SCH ×2 (09:01→16:11)
[2020-02-20] MEDS: RisperiDONE 3 MG TABLET PO SCH ×2 (09:01→16:11)
[2020-02-20] MEDS: DIVALPROEX SODIUM 500 MG ER TABLET PO SCH (20:19)
[2020-02-20 20:38] VITALS: BP 101/64
[2020-02-21 09:00] VITALS: BP 107/59
[2020-02-21] MEDS: CEPHALEXIN MONOHYDRATE 250 MG CAPSULE PO SCH ×3 (09:52→16:11)
[2020-02-21] MEDS: RisperiDONE 3 MG TABLET PO SCH ×2 (09:52→16:11)
[2020-02-21] MEDS: BENZTROPINE MESYLATE 1 MG TABLET PO SCH ×2 (09:53→16:11)
[2020-02-21] MEDS: HALOPERIDOL 5 MG TABLET PO PRN (14:58)
[2020-02-21 17:58] VITALS: BP 125/86
[2020-02-21] MEDS: LORazepam 2 MG TABLET PO PRN (18:08)
[2020-02-21] MEDS: DIVALPROEX SODIUM 500 MG ER TABLET PO SCH (20:04)
[2020-02-22 08:44] VITALS: BP 109/58
[2020-02-22] MEDS: RisperiDONE 3 MG TABLET PO SCH ×2 (08:52→16:08)
[2020-02-22] MEDS: BENZTROPINE MESYLATE 1 MG TABLET PO SCH ×2 (08:52→16:09)
[2020-02-22] MEDS: CEPHALEXIN MONOHYDRATE 250 MG CAPSULE PO SCH ×3 (08:53→16:09)
[2020-02-22 19:34] VITALS: BP 108/53
[2020-02-22] MEDS: DIVALPROEX SODIUM 500 MG ER TABLET PO SCH (20:30)
[2020-02-23] MEDS: LORazepam 2 MG TABLET PO PRN (00:55)
[2020-02-23 01:17] VITALS: BP 101/73
[2020-02-23 08:00] VITALS: BP 99/70
[2020-02-23] MEDS: CEPHALEXIN MONOHYDRATE 250 MG CAPSULE PO SCH ×3 (08:55→16:04)
[2020-02-23] MEDS: RisperiDONE 3 MG TABLET PO SCH ×2 (08:55→16:03)
[2020-02-23] MEDS: BENZTROPINE MESYLATE 1 MG TABLET PO SCH ×2 (08:55→16:03)
[2020-02-23 16:46] VITALS: BP 110/68
[2020-02-23] MEDS: DIVALPROEX SODIUM 500 MG ER TABLET PO SCH (20:33)
[2020-02-24 03:45] VITALS: BP 98/62
[2020-02-24 08:45] VITALS: BP 106/52
[2020-02-24] MEDS: BENZTROPINE MESYLATE 1 MG TABLET PO SCH ×2 (10:38→17:19)
[2020-02-24] MEDS: RisperiDONE 3 MG TABLET PO SCH ×2 (10:38→17:19)
[2020-02-24] MEDS: CEPHALEXIN MONOHYDRATE 250 MG CAPSULE PO SCH ×3 (10:38→17:19)
[2020-02-24] MEDS: DIVALPROEX SODIUM 500 MG ER TABLET PO SCH (20:49)
[2020-02-24 22:12] VITALS: BP 114/73
[2020-02-25 01:40] VITALS: BP 115/74
[2020-02-25] MEDS: BENZTROPINE MESYLATE 1 MG TABLET PO SCH ×2 (09:52→16:32)
[2020-02-25] MEDS: RisperiDONE 3 MG TABLET PO SCH ×2 (09:52→16:32)
[2020-02-25 09:58] VITALS: BP 99/70
[2020-02-25] MEDS: HALOPERIDOL 5 MG TABLET PO PRN (15:44)
[2020-02-25] MEDS: LORazepam 2 MG TABLET PO PRN (15:44)
[2020-02-25 20:05] VITALS: BP 141/81
[2020-02-25] MEDS: DIVALPROEX SODIUM 500 MG ER TABLET PO SCH (20:51)
[2020-02-26 08:59] VITALS: BP 100/52
[2020-02-26] MEDS: BENZTROPINE MESYLATE 1 MG TABLET PO SCH ×2 (09:11→16:14)
[2020-02-26] MEDS: RisperiDONE 3 MG TABLET PO SCH ×2 (09:11→16:14)
[2020-02-26] MEDS: HALOPERIDOL 5 MG TABLET PO PRN (09:11)
[2020-02-26] MEDS: LORazepam 2 MG TABLET PO PRN (09:11)
[2020-02-26 16:32] VITALS: BP 112/67
[2020-02-26] MEDS: DIVALPROEX SODIUM 500 MG ER TABLET PO SCH (20:34)
[2020-02-27] MEDS: LORazepam 2 MG TABLET PO PRN ×2 (01:19→17:14)
[2020-02-27 02:32] VITALS: BP 92/64
[2020-02-27] MEDS: RisperiDONE 3 MG TABLET PO SCH ×2 (09:11→16:17)
[2020-02-27] MEDS: BENZTROPINE MESYLATE 1 MG TABLET PO SCH ×2 (09:11→16:17)
[2020-02-27 09:15] VITALS: BP 102/59
[2020-02-27 17:14] VITALS: BP 116/73
[2020-02-27] MEDS: DIVALPROEX SODIUM 500 MG ER TABLET PO SCH (20:35)
[2020-02-28] MEDS: BENZTROPINE MESYLATE 1 MG TABLET PO SCH ×2 (08:24→16:43)
[2020-02-28] MEDS: RisperiDONE 3 MG TABLET PO SCH ×2 (08:24→16:43)
[2020-02-28 08:55] VITALS: BP 108/69
[2020-02-28] MEDS: LORazepam 2 MG TABLET PO PRN (14:44)
[2020-02-28 17:08] VITALS: BP 102/51
[2020-02-28] MEDS: DIVALPROEX SODIUM 500 MG ER TABLET PO SCH (20:12)
[2020-02-29] MEDS: BENZTROPINE MESYLATE 1 MG TABLET PO SCH ×2 (08:03→16:14)
[2020-02-29] MEDS: RisperiDONE 3 MG TABLET PO SCH ×2 (08:03→16:14)
[2020-02-29 10:11] VITALS: BP 105/71
[2020-02-29] MEDS: HALOPERIDOL 5 MG TABLET PO PRN (14:04)
[2020-02-29] MEDS: LORazepam 2 MG TABLET PO PRN (14:04)
[2020-02-29 16:55] VITALS: BP 107/64
[2020-02-29] MEDS: DIVALPROEX SODIUM 500 MG ER TABLET PO SCH (20:28)
[2020-03-01 03:55] VITALS: BP 104/70
[2020-03-01 08:24] VITALS: BP 108/66
[2020-03-01] MEDS: BENZTROPINE MESYLATE 1 MG TABLET PO SCH ×2 (10:07→16:22)
[2020-03-01] MEDS: LORazepam 2 MG TABLET PO PRN (10:07)
[2020-03-01] MEDS: RisperiDONE 3 MG TABLET PO SCH ×2 (10:07→16:22)
[2020-03-01] MEDS: HALOPERIDOL 5 MG TABLET PO PRN (10:07)
[2020-03-01 16:35] VITALS: BP 106/78
[2020-03-01] MEDS: DIVALPROEX SODIUM 500 MG ER TABLET PO SCH (20:16)
[2020-03-02 02:24] VITALS: BP 99/59
[2020-03-02] MEDS: HALOPERIDOL 5 MG TABLET PO PRN ×2 (09:51→15:42)
[2020-03-02] MEDS: LORazepam 2 MG TABLET PO PRN ×2 (09:51→15:42)
[2020-03-02] MEDS: RisperiDONE 3 MG TABLET PO SCH ×2 (09:51→16:08)
[2020-03-02] MEDS: BENZTROPINE MESYLATE 1 MG TABLET PO SCH ×2 (09:51→16:08)
[2020-03-02 10:20] VITALS: BP 107/67
[2020-03-02 16:44] VITALS: BP 106/68
[2020-03-02] MEDS: DIVALPROEX SODIUM 500 MG ER TABLET PO SCH (20:06)
[2020-03-03 02:37] VITALS: BP 113/69
[2020-03-03] MEDS: RisperiDONE 3 MG TABLET PO SCH ×2 (08:13→16:11)
[2020-03-03] MEDS: BENZTROPINE MESYLATE 1 MG TABLET PO SCH ×2 (08:13→16:11)
[2020-03-03 08:27] VITALS: BP 112/69
[2020-03-03] MEDS: HALOPERIDOL 5 MG TABLET PO PRN (14:10)
[2020-03-03 17:01] VITALS: BP 108/63
[2020-03-03] MEDS: LORazepam 2 MG TABLET PO PRN (17:06)
[2020-03-03] MEDS: DIVALPROEX SODIUM 500 MG ER TABLET PO SCH (21:35)
[2020-03-04 04:07] VITALS: BP 140/75
[2020-03-04 08:00] VITALS: BP 111/67
[2020-03-04] MEDS: BENZTROPINE MESYLATE 1 MG TABLET PO SCH ×2 (10:48→16:47)
[2020-03-04] MEDS: RisperiDONE 3 MG TABLET PO SCH ×2 (10:48→16:48)
[2020-03-04] MEDS: HALOPERIDOL 5 MG TABLET PO PRN (12:38)
[2020-03-04] MEDS: LORazepam 2 MG TABLET PO PRN (12:38)
[2020-03-04 16:35] VITALS: BP 133/90
[2020-03-04] MEDS: DIVALPROEX SODIUM 500 MG ER TABLET PO SCH (20:43)
[2020-03-05] MEDS: LORazepam 2 MG TABLET PO PRN (02:10)
[2020-03-05 03:52] VITALS: BP 125/58
[2020-03-05 08:39] VITALS: BP 113/58
[2020-03-05] MEDS: BENZTROPINE MESYLATE 1 MG TABLET PO SCH ×2 (08:54→16:27)
[2020-03-05] MEDS: RisperiDONE 3 MG TABLET PO SCH ×2 (08:54→16:27)
[2020-03-05 16:00] VITALS: BP 116/64
[2020-03-05] MEDS: DIVALPROEX SODIUM 500 MG ER TABLET PO SCH (20:10)
[2020-03-06] MEDS: BENZTROPINE MESYLATE 1 MG TABLET PO SCH ×2 (08:13→16:11)
[2020-03-06] MEDS: RisperiDONE 3 MG TABLET PO SCH ×2 (08:13→16:11)
[2020-03-06 09:35] VITALS: BP 102/53
[2020-03-06] MEDS: LORazepam 2 MG TABLET PO PRN (12:49)
[2020-03-06] MEDS: HALOPERIDOL 5 MG TABLET PO PRN (12:49)
[2020-03-06 16:20] VITALS: BP 108/67
[2020-03-06] MEDS: DIVALPROEX SODIUM 500 MG ER TABLET PO SCH (20:13)
[2020-03-07 02:15] VITALS: BP 112/55
[2020-03-07] MEDS: RisperiDONE 3 MG TABLET PO SCH ×2 (09:01→16:12)
[2020-03-07] MEDS: BENZTROPINE MESYLATE 1 MG TABLET PO SCH ×2 (09:01→16:12)
[2020-03-07 09:31] VITALS: BP 106/58
[2020-03-07] MEDS: LORazepam 2 MG TABLET PO PRN (13:22)
[2020-03-07] MEDS: DIVALPROEX SODIUM 500 MG ER TABLET PO SCH (20:29)
[2020-03-07 20:58] VITALS: BP 106/52
[2020-03-08] MEDS: RisperiDONE 3 MG TABLET PO SCH ×2 (08:37→16:07)
[2020-03-08] MEDS: BENZTROPINE MESYLATE 1 MG TABLET PO SCH ×2 (08:37→16:07)
[2020-03-08 09:12] VITALS: BP 100/62
[2020-03-08] MEDS: LORazepam 2 MG TABLET PO PRN (12:36)
[2020-03-08 16:39] VITALS: BP 105/66
[2020-03-08] MEDS: DIVALPROEX SODIUM 500 MG ER TABLET PO SCH (20:31)
[2020-03-09 00:04] VITALS: BP 106/68
[2020-03-09] MEDS: LORazepam 2 MG TABLET PO PRN ×2 (00:04→11:13)
[2020-03-09] MEDS: HALOPERIDOL 5 MG TABLET PO PRN (00:04)
[2020-03-09] MEDS: RisperiDONE 3 MG TABLET PO SCH ×2 (08:32→16:27)
[2020-03-09] MEDS: BENZTROPINE MESYLATE 1 MG TABLET PO SCH ×2 (08:32→16:27)
[2020-03-09 09:30] VITALS: BP 107/63
[2020-03-09 19:51] VITALS: BP 102/63
[2020-03-09] MEDS: DIVALPROEX SODIUM 500 MG ER TABLET PO SCH (21:44)
[2020-03-10 01:11] VITALS: BP 120/62
[2020-03-10] MEDS: RisperiDONE 3 MG TABLET PO SCH ×2 (09:08→16:46)
[2020-03-10] MEDS: BENZTROPINE MESYLATE 1 MG TABLET PO SCH ×2 (09:08→16:46)
[2020-03-10 09:35] VITALS: BP 112/64
[2020-03-10] MEDS: LORazepam 2 MG TABLET PO PRN (14:22)
[2020-03-10 16:47] VITALS: BP 109/65
[2020-03-10] MEDS: DIVALPROEX SODIUM 500 MG ER TABLET PO SCH (20:52)
[2020-03-11] MEDS: LORazepam 2 MG TABLET PO PRN ×2 (04:10→12:17)
[2020-03-11 04:30] VITALS: BP 121/66
[2020-03-11] MEDS: RisperiDONE 3 MG TABLET PO SCH ×2 (08:28→16:51)
[2020-03-11] MEDS: BENZTROPINE MESYLATE 1 MG TABLET PO SCH ×2 (08:28→16:51)
[2020-03-11 11:26] VITALS: BP 107/67
[2020-03-11] MEDS ORDERED: ALOE VERA 100% 360 ML GEL TP PRN (12:00)
[2020-03-11 19:42] VITALS: BP 124/71
[2020-03-11] MEDS: DIVALPROEX SODIUM 500 MG ER TABLET PO SCH (20:21)
[2020-03-12] MEDS: BENZTROPINE MESYLATE 1 MG TABLET PO SCH ×2 (08:45→16:27)
[2020-03-12] MEDS: RisperiDONE 3 MG TABLET PO SCH ×2 (08:45→16:27)
[2020-03-12 09:39] VITALS: BP 114/68
[2020-03-12] MEDS: LORazepam 2 MG TABLET PO PRN (14:20)
[2020-03-12 18:48] VITALS: BP 119/66
[2020-03-12] MEDS: DIVALPROEX SODIUM 500 MG ER TABLET PO SCH (20:20)
[2020-03-13 02:00] VITALS: BP 112/69
[2020-03-13] MEDS: RisperiDONE 3 MG TABLET PO SCH ×2 (08:52→16:12)
[2020-03-13] MEDS: BENZTROPINE MESYLATE 1 MG TABLET PO SCH ×2 (08:52→16:12)
[2020-03-13 11:26] VITALS: BP 129/66
[2020-03-13] MEDS: HALOPERIDOL 5 MG TABLET PO PRN ×2 (11:41→17:56)
[2020-03-13 16:54] VITALS: BP 113/80
[2020-03-13] MEDS: LORazepam 2 MG TABLET PO PRN (17:56)
[2020-03-13] MEDS: DIVALPROEX SODIUM 500 MG ER TABLET PO SCH (20:56)
[2020-03-14] MEDS: RisperiDONE 3 MG TABLET PO SCH ×2 (09:04→16:22)
[2020-03-14] MEDS: BENZTROPINE MESYLATE 1 MG TABLET PO SCH ×2 (09:04→16:22)
[2020-03-14 09:15] VITALS: BP 138/90
[2020-03-14] MEDS: LORazepam 2 MG TABLET PO PRN (12:00)
[2020-03-14 16:56] VITALS: BP 108/62
[2020-03-14] MEDS: DIVALPROEX SODIUM 500 MG ER TABLET PO SCH (20:52)
[2020-03-15 09:35] VITALS: BP 102/63
[2020-03-15] MEDS: HALOPERIDOL 5 MG TABLET PO PRN (09:48)
[2020-03-15] MEDS: BENZTROPINE MESYLATE 1 MG TABLET PO SCH ×2 (09:48→16:48)
[2020-03-15] MEDS: LORazepam 2 MG TABLET PO PRN (09:48)
[2020-03-15] MEDS: RisperiDONE 3 MG TABLET PO SCH ×2 (09:48→16:48)
[2020-03-15 17:35] VITALS: BP 113/73
[2020-03-15] MEDS: DIVALPROEX SODIUM 500 MG ER TABLET PO SCH (20:36)
[2020-03-16 01:22] VITALS: BP 111/74
[2020-03-16] MEDS: BENZTROPINE MESYLATE 1 MG TABLET PO SCH ×2 (08:45→16:30)
[2020-03-16] MEDS: RisperiDONE 3 MG TABLET PO SCH ×2 (08:45→16:30)
[2020-03-16 08:46] VITALS: BP 133/81
[2020-03-16 18:14] VITALS: BP 109/76
[2020-03-16] MEDS: DIVALPROEX SODIUM 500 MG ER TABLET PO SCH (20:17)
[2020-03-17] MEDS: LORazepam 2 MG TABLET PO PRN (01:54)
[2020-03-17 02:04] VITALS: BP 104/73
[2020-03-17] MEDS: RisperiDONE 3 MG TABLET PO SCH ×2 (09:25→16:22)
[2020-03-17] MEDS: BENZTROPINE MESYLATE 1 MG TABLET PO SCH ×2 (09:25→16:22)
[2020-03-17 09:41] VITALS: BP 126/68
[2020-03-17 16:39] VITALS: BP 114/70
[2020-03-17] MEDS: DIVALPROEX SODIUM 500 MG ER TABLET PO SCH (20:31)
[2020-03-18 09:48] VITALS: BP 114/72
[2020-03-18] MEDS: BENZTROPINE MESYLATE 1 MG TABLET PO SCH ×2 (10:07→16:48)
[2020-03-18] MEDS: RisperiDONE 3 MG TABLET PO SCH ×2 (10:07→16:48)
[2020-03-18 16:41] VITALS: BP 134/69
[2020-03-18] MEDS: DIVALPROEX SODIUM 500 MG ER TABLET PO SCH (20:32)
[2020-03-19 03:35] VITALS: BP 98/58
[2020-03-19 08:38] VITALS: BP 116/66
[2020-03-19] MEDS: BENZTROPINE MESYLATE 1 MG TABLET PO SCH ×2 (08:51→16:18)
[2020-03-19] MEDS: RisperiDONE 3 MG TABLET PO SCH ×2 (08:52→16:18)
[2020-03-19] MEDS: HALOPERIDOL 5 MG TABLET PO PRN (09:49)
[2020-03-19] MEDS: LORazepam 2 MG TABLET PO PRN ×2 (09:49→16:19)
[2020-03-19 16:43] VITALS: BP 117/61
[2020-03-19] MEDS: DIVALPROEX SODIUM 500 MG ER TABLET PO SCH (20:33)
[2020-03-20 08:55] VITALS: BP 111/74
[2020-03-20] MEDS: RisperiDONE 3 MG TABLET PO SCH ×2 (08:55→16:15)
[2020-03-20] MEDS: BENZTROPINE MESYLATE 1 MG TABLET PO SCH ×2 (08:55→16:15)
[2020-03-20] MEDS: LORazepam 2 MG TABLET PO PRN ×2 (14:24→23:49)
[2020-03-20 16:32] VITALS: BP 115/69
[2020-03-20] MEDS: DIVALPROEX SODIUM 500 MG ER TABLET PO SCH (20:22)
[2020-03-21 00:05] VITALS: BP 102/66
[2020-03-21] MEDS: RisperiDONE 3 MG TABLET PO SCH ×2 (09:18→16:33)
[2020-03-21] MEDS: BENZTROPINE MESYLATE 1 MG TABLET PO SCH ×2 (09:18→16:33)
[2020-03-21] MEDS: LORazepam 2 MG TABLET PO PRN (13:00)
[2020-03-21 13:40] VITALS: BP 115/57
[2020-03-21 16:34] VITALS: BP 105/56
[2020-03-21] MEDS: DIVALPROEX SODIUM 500 MG ER TABLET PO SCH (20:50)
[2020-03-22 00:06] VITALS: BP 96/70
[2020-03-22 09:11] VITALS: BP 143/59
[2020-03-22] MEDS: BENZTROPINE MESYLATE 1 MG TABLET PO SCH ×2 (09:23→16:25)
[2020-03-22] MEDS: RisperiDONE 3 MG TABLET PO SCH ×2 (09:23→16:24)
[2020-03-22 16:33] VITALS: BP 109/67
[2020-03-22] MEDS: DIVALPROEX SODIUM 500 MG ER TABLET PO SCH (20:53)
[2020-03-23 01:20] VITALS: BP 116/67
[2020-03-23] MEDS: LORazepam 2 MG TABLET PO PRN ×2 (01:27→16:49)
[2020-03-23] MEDS: BENZTROPINE MESYLATE 1 MG TABLET PO SCH ×2 (08:08→16:05)
[2020-03-23] MEDS: RisperiDONE 3 MG TABLET PO SCH ×2 (08:08→16:05)
[2020-03-23 10:16] VITALS: BP 110/69
[2020-03-23] MEDS ORDERED: INFLUENZA VIRUS VACCINE QVS 2019-20 (3YR+)/PF 60 MCG/0.5 ML SYRINGE IM ONE (15:00)
[2020-03-23] MEDS ORDERED: HEPATITIS A VACCINE, INACTI [ADULT] 1,440 UNITS/ML VIAL IM ONE (15:00)
[2020-03-23] MEDS ORDERED: PNEUMOCOCCAL VACCINE POLYVALENT 0.5 ML VIAL [PPSV23] IM ONE (15:00)
[2020-03-23 16:36] VITALS: BP 102/63
[2020-03-23] MEDS: DIVALPROEX SODIUM 500 MG ER TABLET PO SCH (21:13)
[2020-03-24] MEDS: BENZTROPINE MESYLATE 1 MG TABLET PO SCH ×2 (08:15→16:07)
[2020-03-24] MEDS: RisperiDONE 3 MG TABLET PO SCH ×2 (08:15→16:07)
[2020-03-24] MEDS: LORazepam 2 MG TABLET PO PRN (13:51)
[2020-03-24 14:42] VITALS: BP 124/71
[2020-03-24 17:17] VITALS: BP 110/70
[2020-03-24] MEDS: DIVALPROEX SODIUM 500 MG ER TABLET PO SCH (20:44)
[2020-03-25 02:39] VITALS: BP 110/70
[2020-03-25] MEDS: BENZTROPINE MESYLATE 1 MG TABLET PO SCH ×2 (08:09→16:10)
[2020-03-25] MEDS: RisperiDONE 3 MG TABLET PO SCH ×2 (08:09→16:10)
[2020-03-25 08:30] VITALS: BP 139/84
[2020-03-25 18:02] VITALS: BP 116/72
[2020-03-25] MEDS: DIVALPROEX SODIUM 500 MG ER TABLET PO SCH (20:09)
[2020-03-26 03:37] VITALS: BP 107/71
[2020-03-26 08:30] VITALS: BP 110/78
[2020-03-26] MEDS: RisperiDONE 3 MG TABLET PO SCH ×2 (09:02→16:29)
[2020-03-26] MEDS: BENZTROPINE MESYLATE 1 MG TABLET PO SCH ×2 (09:02→16:30)
[2020-03-26] MEDS: LORazepam 2 MG TABLET PO PRN (15:05)
[2020-03-26 19:05] VITALS: BP 111/72
[2020-03-26] MEDS: DIVALPROEX SODIUM 500 MG ER TABLET PO SCH (20:45)
[2020-03-27 01:32] VITALS: BP 100/64
[2020-03-27 08:30] VITALS: BP 109/59
[2020-03-27] MEDS: RisperiDONE 3 MG TABLET PO SCH ×2 (09:11→17:01)
[2020-03-27] MEDS: BENZTROPINE MESYLATE 1 MG TABLET PO SCH ×2 (09:11→17:01)
[2020-03-27] MEDS: LORazepam 2 MG TABLET PO PRN (10:44)
[2020-03-27 20:35] VITALS: BP 99/69
[2020-03-27] MEDS: DIVALPROEX SODIUM 500 MG ER TABLET PO SCH (21:23)
[2020-03-28 02:08] VITALS: BP 116/70
[2020-03-28] MEDS: RisperiDONE 3 MG TABLET PO SCH ×2 (07:57→16:19)
[2020-03-28] MEDS: BENZTROPINE MESYLATE 1 MG TABLET PO SCH ×2 (07:57→16:20)
[2020-03-28 08:47] VITALS: BP 111/70
[2020-03-28] MEDS: LORazepam 2 MG TABLET PO PRN (11:58)
[2020-03-28] MEDS ORDERED: RISP3 PO (13:00)
[2020-03-28] MEDS ORDERED: LORA-1001 PO (13:00)
[2020-03-28] MEDS ORDERED: BENZ1TAB10 PO (13:00)
[2020-03-28] MEDS ORDERED: DIVA500T52 PO (13:00)
[2020-03-28] MEDS ORDERED: HALO5TAB23 PO (13:00)
[2020-03-28 16:50] VITALS: BP 109/71
[2020-03-28] MEDS: DIVALPROEX SODIUM 500 MG ER TABLET PO SCH (21:09)
[2020-03-29 07:29] LABS: BASOPHILS % (AUTO) 0.2 % (0.0-2.0); EOSINOPHILS % (AUTO) 4.7 % (1.0-6.0); HEMATOCRIT 41.3 % (36-46); HEMOGLOBIN 13.9 g/dL (12.0-16.0); LYMPHOCYTES # (AUTO) 1.7 K/uL (1.0-4.8); LYMPHOCYTES % (AUTO) 34.9 % (22.0-44.0); MEAN CORPUSCULAR HEMOGLOBIN 30.5 pg (26.0-34.0); MEAN CORPUSCULAR HGB CONC 33.7 G/dL (31.0-37.0); MEAN CORPUSCULAR VOLUME 90 fL (80-100); MONOCYTES # (AUTO) 0.4 K/uL (0.1-1.0); NEUTROPHILS # (AUTO) 2.5 K/uL (1.8-7.7); NEUTROPHILS % (AUTO) 51.2 % (40.0-70.0); PLATELET COUNT (AUTO) 140 K/uL (150-450); RED BLOOD CELL COUNT(AUTO) 4.57 MIL/uL (4.00-5.20); RED CELL DISTRIBUTION WIDTH 15.1 % (11.5-14.5)
[2020-03-29] MEDS: RisperiDONE 3 MG TABLET PO SCH ×2 (08:33→16:02)
[2020-03-29] MEDS: BENZTROPINE MESYLATE 1 MG TABLET PO SCH ×2 (08:33→16:02)
[2020-03-29 10:42] VITALS: BP 134/76
[2020-03-29] MEDS: LORazepam 2 MG TABLET PO PRN (12:32)
== END 2020-03-29 19:29 | disposition home or self-care (01) | DRG 885 ==
LOC: EMS 19:32 → 3EI 01-01 00:30
PROVIDERS: ADMIT Psychiatry & Neurology Child & Adolescent Psychiatry; ATTEND Psychiatry & Neurology Child & Adolescent Psychiatry
DX: F20.0 Paranoid schizophrenia (principal); R45.851 Suicidal ideations; I10 Essential (primary) hypertension; F10.10 Alcohol abuse, uncomplicated; F17.200 Nicotine dependence, unspecified, uncomplicated; F14.90 Cocaine use, unspecified, uncomplicated; F12.90 Cannabis use, unspecified, uncomplicated; F11.90 Opioid use, unspecified, uncomplicated; F15.90 Other stimulant use, unspecified, uncomplicated; K08.89 Other specified disorders of teeth and supporting structures; F41.0 Panic disorder [episodic paroxysmal anxiety]; Z59.0 Homelessness; Z91.14 Patient's other noncompliance with medication regimen
CPT/HCPCS: 87081; 87086; 87635; 90632; 90686; 90732; G0480

== ENCOUNTER 2024-04-28 12:29 | Emergency (ER) | payer MEDICAID, OTHER ==
[~2024-04-28] VITALS: Ht 167.6 cm; Wt 95.0 kg
[~2024-04-28 12:29] MED LIST changes: +BENZ1TAB84 PO; +DIVA500T53 PO; +HALO5TAB23 PO; +LORA-1001 PO; -RISP1 PO; +RISP3TAB35 PO
[2024-04-28 12:48] VITALS: BP 140/65; PULSE 85; RESP 18; TEMP 98
[2024-04-28 13:23] LABS: BASOPHILS % (AUTO) 0.4 % (0.0-2.0); EOSINOPHILS % (AUTO) 5.2 % (1.0-6.0); HEMATOCRIT 41.6 % (36-46); HEMOGLOBIN 13.8 g/dL (12.0-16.0); LYMPHOCYTES # (AUTO) 1.5 K/uL (1.0-4.8); LYMPHOCYTES % (AUTO) 31.7 % (22.0-44.0); MEAN CORPUSCULAR HEMOGLOBIN 30.5 pg (26.0-34.0); MEAN CORPUSCULAR HGB CONC 33.2 G/dL (31.0-37.0); MEAN CORPUSCULAR VOLUME 92 fL (80-100); MONOCYTES # (AUTO) 0.4 K/uL (0.1-1.0); NEUTROPHILS # (AUTO) 2.6 K/uL (1.8-7.7); NEUTROPHILS % (AUTO) 54.7 % (40.0-70.0); PLATELET COUNT (AUTO) 169 K/uL (150-450); RED BLOOD CELL COUNT(AUTO) 4.54 MIL/uL (4.00-5.20); RED CELL DISTRIBUTION WIDTH 13.8 % (11.5-14.5); WHITE BLOOD COUNT (AUTO) 4.8 K/uL (4.5-11.0)
[2024-04-28 13:32] LABS: ANION GAP 5 mmol/L (8-16); CALCIUM, TOTAL 8.9 mg/dL (8.8-10.5); CARBON DIOXIDE 31 mmol/L (22-29); CHLORIDE 106 mmol/L (98-107); CREATININE 0.71 mg/dL (0.60-1.30); GLOMERULAR FILTR. RATE CALC > 60 mL/min (>60); GLUCOSE,RANDOM 86 mg/dL (70-110); POTASSIUM 3.3 mmol/L (3.5-5.1); SODIUM SERUM 142 mmol/L (136-145); UREA NITROGEN, BLOOD 8 mg/dL (7-18)
[2024-04-28 13:42] LABS: ALCOHOL, BLOOD (SERUM) < 3 mg/dL (0-10)
[2024-04-28 13:45] LABS: ALCOHOL, URINE DRUG SCREEN NEGATIVE (NEGATIVE); AMPHET/METH SCREEN,URINE NEGATIVE (NEGATIVE); BARBITURATE SCREEN, URINE NEGATIVE (NEGATIVE); BENZODIAZEPINES SCREEN,URINE NEGATIVE (NEGATIVE); CANNABINOID SCREEN,URINE NEGATIVE (NEGATIVE); COCAINE SCREEN,URINE NEGATIVE (NEGATIVE); METHADONE SCREEN, URINE NEGATIVE (NEGATIVE); OPIATE SCREEN,URINE NEGATIVE (NEGATIVE); PHENCYCLIDINE SCREEN,URINE NEGATIVE (NEGATIVE)
== END 2024-04-28 16:35 | disposition home or self-care (01) ==
LOC: EMS 12:29
DX: F25.9 Schizoaffective disorder, unspecified (principal); F41.9 Anxiety disorder, unspecified; F31.9 Bipolar disorder, unspecified; I10 Essential (primary) hypertension; F12.90 Cannabis use, unspecified, uncomplicated; F14.90 Cocaine use, unspecified, uncomplicated
CPT/HCPCS: 99283; 80048; 85025; 36415; 80307 ×2; G0480

== ENCOUNTER 2025-04-16 11:36 | Emergency (ER) | payer OTHER ==
[~2025-04-16] VITALS: Ht 177.8 cm; Wt 72.7 kg
[~2025-04-16 11:36] MED LIST changes: +BENZ-247 PO; -BENZ1TAB84 PO; +DIVA-153 PO; -DIVA500T53 PO; -LORA-1001 PO; +LORA2TAB18 PO
[2025-04-16 11:39] VITALS: BP 157/90; PULSE 74; RESP 18; TEMP 98.2; O2SAT 99
[2025-04-16] MEDS ORDERED: OMEP20CA12 PO (11:45)
[2025-04-16] MEDS ORDERED: NORE-8 PO (11:45)
[2025-04-16] MEDS ORDERED: MULT-1336 PO (11:45)
[2025-04-16] MEDS ORDERED: DIPH-1237 PO (11:45)
[2025-04-16] MEDS ORDERED: RISP4TAB94 PO (11:45)
[2025-04-16] MEDS ORDERED: GABA-529 PO (11:45)
[2025-04-16] MEDS: ONDANSETRON 4 MG TABLET PO ONE (12:49)
[2025-04-16] MEDS: PB/HYOSCY/ATR/SCOP/LIDO/MAALOX 55 ML BOTTLE PO ONE (12:49)
[2025-04-16 12:50] LABS: BASOPHILS % (AUTO) 0.4 % (0.0-2.0); EOSINOPHILS % (AUTO) 1.9 % (1.0-6.0); HEMATOCRIT 42.6 % (36-46); HEMOGLOBIN 14.1 g/dL (12.0-16.0); LYMPHOCYTES # (AUTO) 1.4 K/uL (1.0-4.8); LYMPHOCYTES % (AUTO) 27.6 % (22.0-44.0); MEAN CORPUSCULAR HEMOGLOBIN 30.2 pg (26.0-34.0); MEAN CORPUSCULAR VOLUME 92 fL (80-100); MONOCYTES # (AUTO) 0.3 K/uL (0.1-1.0); MONOCYTES % (AUTO) 5.7 % (2.0-9.0); NEUTROPHILS # (AUTO) 3.2 K/uL (1.8-7.7); NEUTROPHILS % (AUTO) 64.4 % (40.0-70.0); PLATELET COUNT (AUTO) 198 K/uL (150-450); RED BLOOD CELL COUNT(AUTO) 4.65 MIL/uL (4.00-5.20); RED CELL DISTRIBUTION WIDTH 12.7 % (11.5-14.5); WHITE BLOOD COUNT (AUTO) 4.9 K/uL (4.5-11.0)
[2025-04-16 12:57] LABS: ANION GAP 8 mmol/L (8-16); CALCIUM, TOTAL 8.8 mg/dL (8.8-10.5); CARBON DIOXIDE 28 mmol/L (22-29); CHLORIDE 102 mmol/L (98-107); CREATININE 0.88 mg/dL (0.60-1.30); GLOMERULAR FILTR. RATE CALC > 60 mL/min (>60); GLUCOSE,RANDOM 80 mg/dL (70-110); POTASSIUM 3.8 mmol/L (3.5-5.1); SODIUM SERUM 138 mmol/L (136-145); UREA NITROGEN, BLOOD 9 mg/dL (7-18)
[2025-04-16] MEDS ORDERED: ONDA-104 PO (13:32)
[2025-04-16] MEDS ORDERED: ACET-66 PO (13:32)
[2025-04-16] MEDS ORDERED: OMEP-148 PO (13:32)
[2025-04-16] MEDS ORDERED: GABA-1181 PO (13:32)
[2025-04-16] MEDS ORDERED: MAG30ORA11 PO (13:32)
== END 2025-04-16 13:47 | disposition home or self-care (01) ==
LOC: EMS 11:49
DX: K21.9 Gastro-esophageal reflux disease without esophagitis (principal); F41.9 Anxiety disorder, unspecified; F25.9 Schizoaffective disorder, unspecified; F31.9 Bipolar disorder, unspecified; I10 Essential (primary) hypertension; F17.210 Nicotine dependence, cigarettes, uncomplicated; F15.90 Other stimulant use, unspecified, uncomplicated; F12.90 Cannabis use, unspecified, uncomplicated; F14.90 Cocaine use, unspecified, uncomplicated; F19.90 Other psychoactive substance use, unspecified, uncomplicated; Z72.89 Other problems related to lifestyle; Z79.899 Other long term (current) drug therapy
CPT/HCPCS: 99283; 80048; 84703; 85025; 36415; Q0162